=== PATIENT | male | born 1950 | race African-American/Black ===

== ENCOUNTER 2016-11-17 05:07 | Day surgery (SDC) | payer OTHER, BC ==
[2016-11-13 15:14] VITALS: BMI 28.1
[2016-11-17] MEDS ORDERED: MIDAZOLAM HCL 2 MG/2 ML SINGLE DOSE VIAL ONE ×2 (14:36→14:59)
[2016-11-17] MEDS ORDERED: PROPOFOL 20 ML ONE (14:36)
[2016-11-17] MEDS ORDERED: DEXAMETHASONE SOD PHOSPHATE 4 MG/1 ML VIAL ONE (14:43)
[2016-11-17] MEDS ORDERED: ceFAZolin SODIUM 1 GM VIAL ONE (14:47)
[2016-11-17] MEDS ORDERED: BUPIVACAINE HCL/PF 0.5% (5MG/ML) 10 ML VIAL IJ ONE ×2 (14:57)
[2016-11-17] MEDS ORDERED: LIDOCAINE HCL 1%, 10 MG/ML (20ML VIAL) IJ ONE ×2 (14:57)
--- NOTE | 2016-11-17 15:45 | HP ---
Satellite [facility] - Chief Complaint Chief Complaint: left hand pain/contracture - Past Medical History Allergies/Adverse Reactions: Allergies Allergy/AdvReac Type Severity Reaction Status Date / Time No Known Allergies Allergy Verified 11/17/16 13:42 - Current Medications Current Medications: Home Medications Medication Instructions Recorded Lisinopril [Prinivil] 20 mg PO DAILY 11/16/16 Pravastatin Sodium 20 mg PO DAILY 11/16/16 Hydrocodone/Acetaminophen [[place] 1 - 2 each PO Q6H #40 tablet MDD 8 11/17/16 5-325 Tablet] Satellite Physical Exam - Physical Examination Vital Signs: Vital Signs Period Temp Pulse Resp BP Sys/Fritz Pulse Ox Last 24 Hr 98.2 F 68 20 119/62 98 General Appearance: Well Nourished, Well Developed, Alert & Oriented x3 ENT: Clear Lung: Normal air movement Heart: Regular rate & rhythm Extremities: No tenderness/swelling (left hand= + 5th cord, + contracture, nvi) Neurological: Intact, Alert, Oriented Satellite Impression/Plan - Impression/Plan Impression: left hand dupuytrens contracture Operative Procedure: left hand dupuytrens excision Date to be Performed: 11/17/16
--- NOTE | 2016-11-17 15:46 | OP ---
Operative Note - Note: Operative Date: 11/17/16 ([facility]) Pre-Operative Diagnosis: left hand dupuytrens contracture Operation: left hand dupuytrens excision Post-Operative Diagnosis: Same as Pre-op Surgeon: Peewee Ventura Rate And Cost Analyst: Huey Martin Anesthesiologist/GRAIN BROKER: Marita Slaughter Anesthesia: General, Local Specimens Removed: dupuytrens cord Estimated Blood Loss (mls): 0 (tourniquet) Operative Report Dictated: Yes
[2016-11-17] MEDS ORDERED: oxyCODONE HCL 5 MG TABLET PO PRN (15:50)
[2016-11-17] MEDS ORDERED: ONDANSETRON 4 MG/2 ML VIAL IVPUSH PRN (15:50)
[2016-11-17] MEDS ORDERED: LACTATED RINGERS SOLUTION 1,000 ML IV SCH (16:00)
[2016-11-17 17:18] VITALS: TEMP 98
[2016-11-17 18:36] VITALS: BP 133/69; PULSE 65
--- NOTE | 2016-11-18 12:42 | OP ---
DATE OF OPERATION: 11/17/2016 PREOPERATIVE DIAGNOSIS: Left Dupuytren's contracture. POSTOPERATIVE DIAGNOSIS: Left Dupuytren's contracture. PROCEDURE: Left hand Dupuytren's excision. SURGEON: Cassie Gomez MD FILM OR TAPE LIBRARIAN: Huey Martin MD, ANESTHESIA: MAC with local injection of 13 mL 0.5% Marcaine with 1% lidocaine mix. DRAINS: None. COMPLICATIONS: None. SPECIMEN: Dupuytren's tissue left hand. DRAINS: None. BLOOD LOSS: None. FLUID REPLACEMENT: 500 mL Plasma-Lyte. INDICATIONS: This patient is a 66-year-old male with preoperative diagnosis of a left hand Dupuytren's tissue. After understanding the potential risks, complications, alternatives, and benefits to surgery versus nonsurgical treatment, the patient elected to undergo this procedure. DESCRIPTION OF PROCEDURE: The patient was brought to the operating room. Peripheral IV placed. IV sedation given. Then 1 g of IV Ancef given. MAC anesthesia was induced. The left upper extremity was prepped and draped in a sterile fashion, elevated, exsanguinated, and tourniquet inflated to 250 mmHg. The left upper extremity was then placed into a lead hand. His exact incision was marked over the Dupuytren's tissue in the palm at the base of the 4th and 5th digits, and the incision was extended into the 5th digit over the proximal phalanx where there was a tremendous amount of very hard Dupuytren's tissue. The incision was made just through the skin with a No. 15 scalpel blade, and a subcutaneous hemostasis was achieved with a bipolar cautery. Careful dissection was done with a fresh No. 15 scalpel blade as well as the curved iris scissors raising the skin flap the layer between the deep dermal adipose layer and the adipose tissue. Dupuytren's tissue was extremely hard, very gritty as we cut through it and was quite plentiful in all directions including going down, wrapping around the neurovascular structures as well as the flexor tendons. First I started more proximally where there was a large Dupuytren's cord going almost to base of the 4th and 5th metacarpal. This was dissected around, isolated, and great care was taken to preserve all crossing neurovascular structures and flexor tendons. In a careful, sequential fashion from proximal to distal using Allis forceps to pull this tissue upwards, I was able to carefully dissect through all Dupuytren's bands going medial to lateral as well as distal to proximal. In the end, I was able to excise a tremendous amount of Dupuytren's tissue in the palm going towards the 4th and 5th fingers and going into the 5th finger across the proximal phalanx and across the PIP joint. Once I did this, I was able to easily extend the 4th and 5th fingers without much resistance, and I was able to get full extension at all joints including MP and PIP joints. The area was copiously irrigated and washed out. I was unable to see or feel any abnormal Dupuytren's tissue. Closure was done with 4-0 undyed Vicryl in the deep dermal layer, and final skin reapproximation was done with a single interrupted and horizontal mattress alternating sutures with 4-0 nylon. The area was then washed and dried, covered with Xeroform, 4x4 gauze, fluffs between the grafts, Webril, and a 4-inch Orthoglass splint was used on the volar surface to keep all the fingers including the 4th and 5th in full extension. This was wrapped with Enio and Coban. The tourniquet was taken down after a total tourniquet time of 37 minutes. There were no complications during the case. The patient tolerated the procedure well and was brought to the ambulatory recovery room in stable condition. CASSIE GOMEZ M.D. [id number]
--- NOTE | 2016-11-19 14:57 | PATH ---
Surgical Pathology Report Patient Name: TERRY PAYNE [facility]. Rec. #: [id number] /Age/Gender: 1950 (Age: 66) / M Account: [id number] Location: [facility] SURGICAL Taken: 11/18/2016 Received: 11/18/2016 Reported: 11/19/2016 Physicians: Peewee Ventura M.D. Specimen(s) Received LEFT HAND DUPUYTREN'S TISSUE Clinical History Dupuytren's disease left hand Final Diagnosis SOFT TISSUE, LEFT HAND, DUPUYTREN'S EXCISION: CONSISTENT WITH FIBROMATOSIS. Electronically Signed Myke Sawyer M.D. Gross Description Received in formalin labeled "left Dupuytren's tissue left hand" is a 3.0 x 2.7 x 0.4 cm aggregate of juarez fragments of fibrous tissue. A telephone service representative portion is submitted in one cassette. /11/18/201611/18/2016
== END 2016-11-17 18:00 | disposition home or self-care (01) ==
LOC: JASU-SURG 05:07
PROVIDERS: ATTEND Orthopaedic Surgery
PROC: 0JNK0ZZ Release Left Hand Subcutaneous Tissue and Fascia, Open Approach (ICD-10-PCS; principal; 2016-11-17 14:30)
DX: M72.0 Palmar fascial fibromatosis [Dupuytren] (principal)
CPT/HCPCS: 88304-TC; 94760